=== PATIENT | female | born 1990 | race Caucasian/White ===

== ENCOUNTER → 2017-07-20 | Outpatient (REF) ==
[~2017-07-20] MED LIST: BCP TD; CIPRO 500MG TA500 MG PO; FIORICET 325 MG1 TA1 PO; GENTAMICIN EYE D5 ML OU; IBU600 MG PO; LEADER EYE ITCH5 ML OU; MACROBID 1100 MG/CAP PO; MOTRIN 600600 MG/TAB PO; NO HOME MEDICATIONS; NORCO 325 MG-51 TAB PO; PEPCID 20MG TAB20 MG PO; PERCOCET 325 MG1 TA2 PO; PHENERGAN 25 TA25 MG PO; PRENATAL PO; PRENATAL1 TA1 PO; PROTONIX 40MG T40 MG PO; PYRIDIUM 100MG100 MG PO; SENOKOT S 50 MG1 TAB PO; SYNTHROID0.3 MG PO; ZANTAC 150MG T150 MG PO
[2017-07-20 11:07] LABS: CHLAMYDIA/TRACH by PCR Female DETECTED; NEISSERIA GON by PCR Female NOT DETECTED
== END ==
LOC: ZCOL.LAB 08:35 → ZLAB.WCH 08:35
DX: Z01.89 Encounter for other specified special examinations (principal)

== ENCOUNTER 2018-09-05 09:00 | Emergency (ER) | payer SELFPAY ==
[~2018-09-05] VITALS: Ht 157.5 cm; Wt 83.6 kg
[2018-09-05 09:04] VITALS: TEMP 97
[2018-09-05 09:30] LABS: COLLECTION METHOD CLEAN CATCH
[2018-09-05 09:37] LABS: MUCOUS Present /lpf; PH 5 (5-8); SQUAMOUS EPITHELIAL 0-2 /hpf; URINE APPEARANCE Clear; URINE BACTERIA Rare /hpf; URINE BILIRUBIN Negative (NEGATIVE); URINE BLOOD 1+ (NEGATIVE); URINE COLOR Yellow; URINE GLUCOSE Negative (NEGATIVE); URINE KETONE Negative (NEGATIVE); URINE LEUKOCYTE ESTERASE Negative (NEGATIVE); URINE NITRATE Negative (NEGATIVE); URINE PROTEIN(semi-quant) Negative (NEGATIVE); URINE RBC 0-2 /hpf; URINE UROBILINOGEN Negative (NEGATIVE)
[2018-09-05 10:57] VITALS: BP 122/72; PULSE 92
== END 2018-09-05 10:57 | disposition home or self-care (01) ==
LOC: COL.ER 09:00
PROVIDERS: Physician Assistant
DX: S89.91XA Unspecified injury of right lower leg, initial encounter (principal); Z20.2 Contact with and (suspected) exposure to infections with a predominantly sexual mode of transmission; Z98.51 Tubal ligation status; Z90.49 Acquired absence of other specified parts of digestive tract; X50.0XXA Overexertion from strenuous movement or load, initial encounter
CPT/HCPCS: J0696; L1846

== ENCOUNTER 2018-10-10 16:52 | Emergency (ER) | payer SELFPAY ==
[~2018-10-10] VITALS: Ht 157.5 cm; Wt 75.5 kg
[2018-10-10 16:55] VITALS: TEMP 97.8
[2018-10-10 17:41] LABS: BASO % 0.3 % (0.0-2.0); EOS % 0.7 % (0-4.0); GRAN # 3.6 (1.4-6.5); GRAN % 59.1 % (42.2-75.2); HEMATOCRIT 41.2 % (37.0-47.0); HEMOGLOBIN 14.1 g/dl (12.5-16.0); LYMPH % 32.9 % (20.0-51.0); MEAN CELL VOLUME 85 fl (80.0-100.0); MEAN CORPUSCULAR HEMOGLOBIN 29 pg (27.0-31.0); MEAN CORPUSCULAR HGB CONC 34 g/dl (33.0-37.0); MEAN PLATELET VOLUME 9.6 fl (7.4-10.4); MONO # 0.4 (0.1-0.6); MONO % 6.8 % (1.7-9.3); PLATELET COUNT 229 K/mm3 (130-400); RED BLOOD COUNT 4.85 M/mm3 (4.10-5.30); REDCELL DISTRIBUTION WIDTH-CV 12.8 % (11.5-14.5)
[2018-10-10 17:48] LABS: COLLECTION METHOD CLEAN CATCH
[2018-10-10 17:55] LABS: ALBUMIN 4.2 gm/dL (3.5-5.0); BILIRUBIN,TOTAL 0.4 mg/dL (0.0-1.0); C-REACTIVE PROTEIN 0.6 mg/dL (0.0-0.9); CALCIUM 9.3 mg/dL (8.4-10.2); CREATININE, serum 0.75 mg/dL (0.52-1.25); POTASSIUM 3.9 mmol/L (3.4-5.0); TOTAL PROTEIN 7.6 gm/dL (6.4-8.2)
[2018-10-10 17:56] LABS: PH 5 (5-8); URINE APPEARANCE Clear; URINE BACTERIA Rare /hpf; URINE BILIRUBIN Negative (NEGATIVE); URINE BLOOD Negative (NEGATIVE); URINE COLOR Yellow; URINE GLUCOSE Negative (NEGATIVE); URINE KETONE Negative (NEGATIVE); URINE LEUKOCYTE ESTERASE 1+ (NEGATIVE); URINE NITRATE Negative (NEGATIVE); URINE PROTEIN(semi-quant) Negative (NEGATIVE); URINE RBC 0-2 /hpf; URINE UROBILINOGEN Negative (NEGATIVE)
[2018-10-10 18:14] VITALS: BP 109/85; PULSE 85
== END 2018-10-10 18:18 | disposition home or self-care (01) ==
LOC: COL.ER 16:52
PROVIDERS: Nurse Practitioner
DX: R10.13 Epigastric pain (principal); Z90.49 Acquired absence of other specified parts of digestive tract; Z98.51 Tubal ligation status

== ENCOUNTER 2019-06-14 20:21 | Emergency (ER) | payer SELFPAY ==
[~2019-06-14] VITALS: Ht 157.5 cm; Wt 74.5 kg
[2019-06-14 20:37] VITALS: BP 121/86; TEMP 98
[2019-06-14] MEDS ORDERED: ZOFRAN ODT4 MG SL (21:13)
[2019-06-14 21:33] VITALS: PULSE 77
== END 2019-06-14 21:33 | disposition home or self-care (01) ==
LOC: COL.ER 20:21
DX: B83.9 Helminthiasis, unspecified (principal)

== ENCOUNTER 2021-01-19 15:50 | Emergency (ER) | payer SELFPAY ==
[~2021-01-19] VITALS: Ht 157.5 cm; Wt 85.0 kg
[~2021-01-19 15:50] MED LIST changes: +ZOFRAN ODT4 MG SL
[2021-01-19 15:54] VITALS: TEMP 97.9
[2021-01-19 16:27] VITALS: BP 131/76; PULSE 82
== END 2021-01-19 16:27 | disposition home or self-care (01) ==
LOC: COL.ER 15:50
DX: S00.552A Superficial foreign body of oral cavity, initial encounter (principal); W45.8XXA Other foreign body or object entering through skin, initial encounter